=== PATIENT | female | born 1945 | race Caucasian/White ===

== ENCOUNTER → 2016-11-21 | Outpatient (CLI) | payer MEDICARE ==
[2016-11-21 08:51] LABS: Basophils # (A) 0.1 k/uL (0-0.2); Basophils % (A) 1 %; CH 30.6; CHCM 32.4; Eosinophils # (A) 0.1 k/uL (0-0.7); Eosinophils % (A) 2 %; HCT 41.5 % (34.0-46.0); HDW 2.39; HGB 13.1 gm/dL (11.4-16.0); Luc % (Auto) 2; Lymphocytes # (A) 1.5 k/uL (1.0-4.8); Lymphocytes % (A) 30 %; MCHC 31.5 g/dL (31.0-37.0); MCV 95.2 fL (80.0-100.0); Mean Platelet Volume 7.5; Monocytes # (A) 0.3 k/uL (0-1.0); Monocytes % (A) 7 %; Neutrophils # (A) 2.9 k/uL (1.3-7.7); Neutrophils % (A) 58 %; RBC 4.36 m/uL (3.80-5.40); RDW 14.1 % (11.5-15.5); WBC (Perox) 5.02
[2016-11-21 09:28] LABS: ALT 35 U/L (9-52); AST 29 U/L (14-36); Alkaline Phosphatase 61 U/L (38-126); Anion Gap 9 mmol/L; Blood Urea Nitrogen 14 mg/dL (7-17); Calcium 9.3 mg/dL (8.4-10.2); Carbon Dioxide 27 mmol/L (22-30); Chloride 107 mmol/L (98-107); Cholesterol 210 mg/dL (<200); Glucose 90 mg/dL (74-99); Non-African American GFR(MDRD) 55 (>60 ml/min/1.73 sqM); Potassium 4.5 mmol/L (3.5-5.1); Sodium 143 mmol/L (137-145); Total Bilirubin 0.4 mg/dL (0.2-1.3); Total Protein 7.3 g/dL (6.3-8.2)
[2016-11-21 09:29] LABS: HDL Cholesterol 63 mg/dL (40-60)
[2016-11-21 13:31] LABS: Hemoglobin A1C 5.7 % (4.2-6.1)
--- NOTE | 2016-11-22 09:06 | MM ---
Reason for exam: screening (asymptomatic). Last mammogram was performed 1 year ago. History: Patient is postmenopausal. Benign excisional biopsy of the left breast. 2 benign excisional biopsies of the right breast. Took estrogen for 3 years. Physical Findings: A clinical breast exam by your physician is recommended on an annual basis and results should be correlated with mammographic findings. MG 3D Screening Mammo W/Cad Bilateral CC and MLO view(s) were taken. Prior study comparison: November 17, 2015, bilateral MG 3d screening mammo w/cad. June 12, 2014, bilateral MG screening mammo w CAD. There are scattered fibroglandular densities. Finding: There are few typically benign vascular, round calcifications in both breasts, greater in the right breast. ASSESSMENT: Benign, BI-RAD 2 RECOMMENDATION: Routine screening mammogram of both breasts in 1 year.
== END | disposition home or self-care (01) ==
LOC: RADMAMWWP 08:19
PROVIDERS: ATTEND Internal Medicine Geriatric Medicine
DX: Z12.31 Encounter for screening mammogram for malignant neoplasm of breast (principal); E03.9 Hypothyroidism, unspecified; I25.10 Atherosclerotic heart disease of native coronary artery without angina pectoris; R79.89 Other specified abnormal findings of blood chemistry
CPT/HCPCS: 84439; 80061; 80053; 83036; 84443; 85025; 77063; 36415; G0202

== ENCOUNTER → 2017-12-10 | Outpatient (CLI) | payer MEDICARE ==
--- NOTE | 2017-12-10 19:11 | BD ---
EXAMINATION TYPE: Axial Bone Density DATE OF EXAM: 12/10/2017 COMPARISON: NONE CLINICAL HISTORY: 71-year-old female osteoporosis, postmenopausal screening Height: 63 Weight: 171.6 FRAX RISK QUESTIONS: Alcohol (3 or more units per day): no Family History (Parent hip fracture): no Glucocorticoids (More than 3mos): no (Ex: prednisone, prednisolone, methylprednisolone, dexamethasone, and hydrocortisone). History of Fracture in Adulthood: no Secondary Osteoporosis: 1. Type 1 Diabetes: no 2. Hyperthyroidism: no 3. Menopause before 45: no 4. Malnutrition: no 5. Chronic liver disease: no Rheumatoid Arthritis: no Current Tobacco Use: no RISK FACTORS HISTORY OF: Family History of Osteoporosis: no Active: yes Diet low in dairy products/other sources of calcium: no Postmenopausal woman: hysterectomy age 44 MEDICATIONS: Thyroid Medications: levothyroxine How Lon years Additional History: EXAM MEASUREMENTS: Bone mineral densitometry was performed using the [employer] System. Bone mineral density as measured about the Lumbar spine is: ----- L1-L4(G/cm2): 1.214 T Score Values are as follows: ----- L2: 0.4 ----- L3: 1.2 ----- L4: -0.4 ----- L1-L4: 0.3 Bone mineral density has: decreased -3.1 % since study of: 12.17.2014 Bone mineral density about the R hip (g/cm2): 0.905 Bone mineral density about the L hip (g/cm2): 0.868 T Score values are as follows: -----R Neck: -1.0 -----L Neck: -1.2 -----R Total: 0.0 -----L Total: 0.2 Bone mineral density has: decreased -2.1 % since study of: 12.17.2014 IMPRESSION: Osteopenia (T Score between -2.5 and -1). There is slightly increased risk of fracture and the patient may be considered for treatment. Re-Screen 2-5 years. NOTE: T-SCORE=SD OF THE YOUNG ADULT MEAN.
--- NOTE | 2017-12-11 10:23 | MM ---
Reason for exam: screening (asymptomatic). Last mammogram was performed 1 year and 1 month ago. History: Patient is postmenopausal. Benign excisional biopsy of the left breast. 2 benign excisional biopsies of the right breast. Took estrogen for 3 years. Physical Findings: A clinical breast exam by your physician is recommended on an annual basis and results should be correlated with mammographic findings. MG 3D Screening Mammo W/Cad Bilateral CC and MLO view(s) were taken. Prior study comparison: November 21, 2016, bilateral MG 3d screening mammo w/cad. November 17, 2015, bilateral MG 3d screening mammo w/cad. The breast tissue is heterogeneously dense. This may lower the sensitivity of mammography. No suspicious abnormality. No significant changes when compared with prior studies. ASSESSMENT: Negative, BI-RAD 1 RECOMMENDATION: Routine screening mammogram of both breasts in 1 year.
== END | disposition home or self-care (01) ==
LOC: RADMAMWWP 12:31
PROVIDERS: ATTEND Internal Medicine Geriatric Medicine
DX: Z12.31 Encounter for screening mammogram for malignant neoplasm of breast (principal); M85.80 Other specified disorders of bone density and structure, unspecified site
CPT/HCPCS: 77063; 77067; 77080

== ENCOUNTER 2018-05-15 09:27 | Observation (INO) | payer MEDICARE ==
[2018-05-15] MEDS ORDERED: NITROGLYCERIN SL TABS 0.4 MG TAB SUBLINGUAL STA (09:41)
[2018-05-15] MEDS ORDERED: ASPIRIN 81 MG PO STA (09:41)
--- NOTE | 2018-05-15 09:43 | ED ---
General Adult HPI - General Chief complaint: Chest Pain Stated complaint: Chest pain Time Seen by Provider: 05/15/18 09:37 Source: patient, RN notes reviewed Mode of arrival: ambulatory Limitations: no limitations - History of Present Illness Initial comments: Patient is a pleasant 72-year-old female presenting to the emergency Department with chest discomfort. Onset of symptoms was this morning. Discomfort is moderate. Discomfort feels like tightness in the upper chest near her throat. Patient has had some mild discomfort of her left shoulder for last couple of days. Patient states there is some minimal associated dyspnea that started this morning. No associated nausea or diaphoresis. Patient does have history of previous cardiac stents however symptoms at that time felt different. - Related Data Home Medications Medication Instructions Recorded Confirmed Levothyroxine Sodium [Synthroid] 75 mcg PO DAILY 05/05/15 05/15/18 Metoprolol Tartrate [Lopressor] 25 mg PO BID 05/05/15 05/15/18 Aspirin EC [Ecotrin] 325 mg PO HS 05/15/18 05/15/18 Famotidine [Pepcid] 20 mg PO BID 05/15/18 05/15/18 Rosuvastatin [Crestor] 10 mg PO DAILY 05/15/18 05/15/18 Ubidecarenone [Co Q-10] 100 mg PO DAILY 05/15/18 05/15/18 Allergies Allergy/AdvReac Type Severity Reaction Status Date / Time hydrocodone bitartrate Allergy Anaphylaxis Verified 05/15/18 09:45 [From Vicodin] Sulfa (Sulfonamide Allergy Abdominal Verified 05/15/18 09:45 Antibiotics) Pain Review of Systems ROS Statement: Those systems with pertinent positive or pertinent negative responses have been documented in the HPI. ROS Other: All systems not noted in ROS Statement are negative. Constitutional: Denies: fever Eyes: Denies: eye pain ENT: Denies: ear pain Respiratory: Reports: as per HPI. Denies: cough Cardiovascular: Reports: as per HPI, chest pain Endocrine: Denies: fatigue Gastrointestinal: Denies: abdominal pain Genitourinary: Denies: dysuria Musculoskeletal: Denies: back pain Skin: Denies: rash Neurological: Denies: weakness Past Medical History Past Medical History: Thyroid Disorder History of Any Multi-Drug Resistant Organisms: None Reported Past Surgical History: Heart Catheterization With Stent, Hysterectomy Additional Past Surgical History / Comment(s): 4 Stents Past Psychological History: No Psychological Hx Reported Smoking Status: Former smoker Past Alcohol Use History: None Reported Past Drug Use History: None Reported General Exam Limitations: no limitations General appearance: alert, in no apparent distress Head exam: Present: atraumatic Eye exam: Present: normal appearance Neck exam: Present: normal inspection Respiratory exam: Present: normal lung sounds bilaterally. Absent: chest wall tenderness Cardiovascular Exam: Present: regular rate, normal rhythm, normal heart sounds Expanded Peripheral pulses: 2+: Radial (R), Radial (L), Dorsalis Pedis (R), Dorsalis Pedis (L) GI/Abdominal exam: Present: soft. Absent: tenderness Extremities exam: Present: normal inspection. 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 UT 164. QRS 86. QT 402. QTC 408. Normal axis. Normal QRS. No acute ST change. Medical Decision Making - Medical Decision Making Patient reevaluated and improved following nitroglycerin. Patient updated on results and plan. Case was discussed in detail with Dr. Cornejo, who will admit covering for Dr. Hills. Cardiology will be placed on consult. - Lab Data Result diagrams: 05/15/18 09:58 05/15/18 09:58 Lab Results 05/15/18 05/15/18 05/15/18 Range/Units 09:58 09:58 09:58 WBC 5.0 (3.8-10.6) k/uL RBC 4.37 (3.80-5.40) m/uL Hgb 13.3 (11.4-16.0) gm/dL Hct 41.1 (34.0-46.0) % MCV 94.0 (80.0-100.0) fL MCH 30.5 (25.0-35.0) pg MCHC 32.4 (31.0-37.0) g/dL RDW 13.4 (11.5-15.5) % Plt Count 202 (150-450) k/uL Neutrophils % 59 % Lymphocytes % 27 % Monocytes % 7 % Eosinophils % 3 % Basophils % 1 % Neutrophils # 3.0 (1.3-7.7) k/uL Lymphocytes # 1.4 (1.0-4.8) k/uL Monocytes # 0.3 (0-1.0) k/uL Eosinophils # 0.2 (0-0.7) k/uL Basophils # 0.0 (0-0.2) k/uL PT 9.7 (9.0-12.0) sec INR 0.9 (<1.2) APTT 22.5 (22.0-30.0) sec D-Dimer 0.35 (<0.60) mg/L FEU Sodium 140 (137-145) mmol/L Potassium 4.0 (3.5-5.1) mmol/L Chloride 107 (98-107) mmol/L Carbon Dioxide 28 (22-30) mmol/L Anion Gap 5 mmol/L BUN 17 (7-17) mg/dL Creatinine 0.77 (0.52-1.04) mg/dL Est GFR (CKD-EPI)AfAm 89 (>60 ml/min/1.73 sqM) Est GFR (CKD-EPI)NonAf 77 (>60 ml/min/1.73 sqM) Glucose 111 H (74-99) mg/dL Calcium 9.2 (8.4-10.2) mg/dL Magnesium 2.0 (1.6-2.3) mg/dL Total Bilirubin 0.5 (0.2-1.3) mg/dL AST 27 (14-36) U/L ALT 31 (9-52) U/L Alkaline Phosphatase 56 (38-126) U/L Creatine Kinase 113 (30-135) U/L Troponin I (0.000-0.034) ng/mL Total Protein 7.1 (6.3-8.2) g/dL Albumin 4.0 (3.5-5.0) g/dL 05/15/18 Range/Units 09:58 WBC (3.8-10.6) k/uL RBC (3.80-5.40) m/uL Hgb (11.4-16.0) gm/dL Hct (34.0-46.0) % MCV (80.0-100.0) fL MCH (25.0-35.0) pg MCHC (31.0-37.0) g/dL RDW (11.5-15.5) % Plt Count (150-450) k/uL Neutrophils % % Lymphocytes % % Monocytes % % Eosinophils % % Basophils % % Neutrophils # (1.3-7.7) k/uL Lymphocytes # (1.0-4.8) k/uL Monocytes # (0-1.0) k/uL Eosinophils # (0-0.7) k/uL Basophils # (0-0.2) k/uL PT (9.0-12.0) sec INR (<1.2) APTT (22.0-30.0) sec D-Dimer (<0.60) mg/L FEU Sodium (137-145) mmol/L Potassium (3.5-5.1) mmol/L Chloride (98-107) mmol/L Carbon Dioxide (22-30) mmol/L Anion Gap mmol/L BUN (7-17) mg/dL Creatinine (0.52-1.04) mg/dL Est GFR (CKD-EPI)AfAm (>60 ml/min/1.73 sqM) Est GFR (CKD-EPI)NonAf (>60 ml/min/1.73 sqM) Glucose (74-99) mg/dL Calcium (8.4-10.2) mg/dL Magnesium (1.6-2.3) mg/dL Total Bilirubin (0.2-1.3) mg/dL AST (14-36) U/L ALT (9-52) U/L Alkaline Phosphatase (38-126) U/L Creatine Kinase (30-135) U/L Troponin I <0.012 (0.000-0.034) ng/mL Total Protein (6.3-8.2) g/dL Albumin (3.5-5.0) g/dL - Radiology Data Radiology results: image reviewed (Chest x-ray shows no acute process.) Disposition Clinical Impression: Chest pain Disposition: ADMITTED IP TO THIS HOSP Is patient prescribed a controlled substance at d/c from ED?: No Referrals: Yung Hills MD [Primary Care Provider] - 1-2 days Decision Time: 12:33
[2018-05-15 10:24] LABS: Basophils % (A) 1 %; Eosinophils # (A) 0.2 k/uL (0-0.7); Eosinophils % (A) 3 %; HCT 41.1 % (34.0-46.0); HGB 13.3 gm/dL (11.4-16.0); Lymphocytes # (A) 1.4 k/uL (1.0-4.8); Lymphocytes % (A) 27 %; MCH 30.5 pg (25.0-35.0); MCHC 32.4 g/dL (31.0-37.0); Mean Platelet Volume 6.6; Monocytes # (A) 0.3 k/uL (0-1.0); Monocytes % (A) 7 %; Neutrophils % (A) 59 %; Platelet Count 202 k/uL (150-450); RBC 4.37 m/uL (3.80-5.40); RDW 13.4 % (11.5-15.5)
[2018-05-15 10:25] LABS: Calcium 9.2 mg/dL (8.4-10.2); Total Bilirubin 0.5 mg/dL (0.2-1.3); Total Protein 7.1 g/dL (6.3-8.2)
--- NOTE | 2018-05-15 10:30 | XR ---
EXAMINATION TYPE: XR chest 2V DATE OF EXAM: 05/15/2018 COMPARISON: Prior chest dated 05/05/2015 HISTORY: Chest pain TECHNIQUE: Frontal and lateral views of the chest are obtained. FINDINGS: There is no focal air space opacity, pleural effusion, or pneumothorax seen. The cardiac silhouette size is within normal limits. The osseous structures are intact. There are cardiac leads . Biapical pleural thickening is stable. Surgical clips present in the upper abdomen. IMPRESSION: No acute cardiopulmonary process.
[2018-05-15 10:51] LABS: D-Dimer 0.35 mg/L FEU (<0.60); INR 0.9 (<1.2); Partial Thromboplastin Time 22.5 sec (22.0-30.0); Prothrombin Time 9.7 sec (9.0-12.0)
[2018-05-15] MEDS ORDERED: NITROGLYCERIN SL TABS 0.4 MG TAB SUBLINGUAL PRN (12:33)
[2018-05-15] MEDS ORDERED: NITROGLYCERIN OINT 1 INCH/GM PACKET TOPICAL STA (12:56)
--- NOTE | 2018-05-15 14:24 | P.HPIM ---
History of Present Illness H&P Date: 05/15/18 Chief Complaint: Chest pain This is a 72-year-old female patient of Dr. Hills with past medical history of coronary artery disease status post 4 stents, hypothyroidism, gastroesophageal reflux disease, hypertension, hyperlipidemia. Patient gives history that she normally contreras in [place] from February to the end of May. When they arrived in February she started walking in the park but she was developing heaviness in the anterior upper chest that was also radiating up into her neck and jaw and this would occur before she had walked very far and distance. She contacted a cardiology office in [place] and because she was a new patient could not be seen until next week. She contacted Dr. Arriaga and she was scheduled for an appointment today but because of her symptoms she decided to come into the emergency center versus going to the appointment. She states she has also had increased heartburn lately and also has left shoulder discomfort which she thinks may be related to packing to come to [place]. She has frequent night sweats. She does complain of lightheadedness that has been going on for 2 years and she is told both the Dr. Hills and Dr. Arriaga and they've told her to get up slowly. She denies having any nausea or vomiting. No diaphoresis. Patient came into [facility] emergency center for evaluation. She was afebrile, blood pressure 165/81, pulse ox 99% on room air, heart rate in the 60s. Chest x-ray showed no acute findings. EKG was a normal sinus rhythm without acute ST changes. Troponin normal, electrolytes within normal limits, CBC normal. D-dimer was 0.35. Liver function tests normal. Patient was placed on the observation unit and consult with cardiology requested. Patient states that she is due for a stress test in June and her last one was done 3 years ago. Patient states that she would prefer to have heart catheterization issues. Concerning the symptoms are similar to past when she needed stents. Review of Systems All systems: negative Constitutional: Reports fatigue, Reports night sweats, Denies anorexia, Denies chills, Denies fever, Denies lethargy, Denies malaise, Denies poor appetite, Denies weakness Eyes: denies blurred vision, denies pain Ears, nose, mouth and throat: Denies dental pain, Denies dysphagia, Denies headache, Denies nasal congestion, Denies nasal discharge, Denies sore throat Cardiovascular: Reports chest pain, Reports decreased exercise tolerance, Reports dyspnea on exertion, Reports lightheadedness, Denies edema, Denies leg edema, Denies palpitations, Denies shortness of breath, Denies syncope Respiratory: Denies cough, Denies cough with sputum, Denies dyspnea, Denies excessive sputum, Denies hemoptysis, Denies home oxygen, Denies sleep apnea, Denies wheezing Gastrointestinal: Reports dyspepsia, Denies abdominal pain, Denies diarrhea, Denies loss of appetite, Denies nausea, Denies vomiting Genitourinary: Denies dysuria, Denies hematuria, Denies urgency, Denies urinary frequency Musculoskeletal: Denies frequent falls, Denies gait dysfunction, Denies myalgias Integumentary: Denies pruritus, Denies rash, Denies wounds Neurological: Denies aphasia, Denies change in mentation, Denies change in speech, Denies gait dysfunction, Denies numbness, Denies seizures, Denies weakness Psychiatric: Denies anxiety, Denies depression Endocrine: Denies fatigue, Denies weight change Past Medical History Past Medical History: Coronary Artery Disease (CAD), GERD/Reflux, Thyroid Disorder History of Any Multi-Drug Resistant Organisms: None Reported Past Surgical History: Heart Catheterization With Stent, Hysterectomy Additional Past Surgical History / Comment(s): 4 Stents Past Psychological History: No Psychological Hx Reported Smoking Status: Former smoker Past Alcohol Use History: None Reported Additional Past Alcohol Use History / Comment(s): Patient was a smoker of a half a pack per day for 24 years and quit in 1982. She denies any marijuana or illicit drug use. She drinks alcohol occasionally. She lives at home with her , diane in [place]. Past Drug Use History: None Reported - Past Family History Father Additional Family Medical History / Comment(s): Father at age 93. He had history of angina. Mother Additional Family Medical History / Comment(s): Mother at age 73 with history of hypertension and cardiomyopathy. Patient presented to the hospital with probable heart attack and was given TPA and from a cerebral hemorrhage. Brother(s) Additional Family Medical History / Comment(s): Patient has 1 brother that at age 71 from coronary artery disease. Sister(s) Additional Family Medical History / Comment(s): Patient has one sister that had a major myocardial infarction age 41 underwent 4 vessel CABG and aneurysm repair of the heart and at age 56. Patient has one sister that is age 78 with asthma. Medications and Allergies Home Medications Medication Instructions Recorded Confirmed Type Levothyroxine Sodium [Synthroid] 75 mcg PO DAILY 05/05/15 05/15/18 History Metoprolol Tartrate [Lopressor] 25 mg PO BID 05/05/15 05/15/18 History Aspirin EC [Ecotrin] 325 mg PO HS 05/15/18 05/15/18 History Famotidine [Pepcid] 20 mg PO BID 05/15/18 05/15/18 History Rosuvastatin [Crestor] 10 mg PO DAILY 05/15/18 05/15/18 History Ubidecarenone [Co Q-10] 100 mg PO DAILY 05/15/18 05/15/18 History Allergies Allergy/AdvReac Type Severity Reaction Status Date / Time hydrocodone bitartrate Allergy Anaphylaxis Verified 05/15/18 09:45 [From Vicodin] Sulfa (Sulfonamide Allergy Abdominal Verified 05/15/18 09:45 Antibiotics) Pain Physical Exam Vitals: Vital Signs Temp Pulse Pulse Resp BP Pulse Ox 05/15/18 12:21 60 18 138/72 100 05/15/18 10:30 61 18 127/73 98 05/15/18 10:14 61 60 18 142/79 100 05/15/18 09:30 97.7 F 69 18 165/81 99 Intake and Output 05/14/18 05/15/18 05/15/18 22:59 06:59 14:59 Other: Weight 78.471 kg Gen: This is a 72-year-old female. She is sitting up in chair in the ER and appears to be comfortable and in no acute distress. HEENT: Head is atraumatic, normocephalic. Pupils equal, round. Sclerae is anicteric. NECK: Supple. No JVD. No lymphadenopathy. No thyromegaly. LUNGS: Clear to auscultation. No wheezes or rhonchi. No intercostal retractions. HEART: Regular rate and rhythm. No murmur. No chest wall tenderness. ABDOMEN: Soft. Bowel sounds are present. No masses. No tenderness. EXTREMITIES: No pedal edema. No calf tenderness. Dorsalis pedis +2 bilaterally. NEUROLOGICAL: Patient is awake, alert and oriented x3. Cranial nerves 2 through 12 are grossly intact. Results CBC & Chem 7: 05/15/18 09:58 05/15/18 09:58 Labs: Abnormal Lab Results - Last 24 Hours (Table) 05/15/18 Range/Units 09:58 Glucose 111 H (74-99) mg/dL Thrombosis Risk Factor Assmnt - DVT/VTE Prophylaxis DVT/VTE Prophylaxis: Pharmacologic Prophylaxis ordered Assessment and Plan Plan: 1. Chest pain/heaviness with dyspnea on exertion. Patient placed on the observation unit, serial troponins, lipid panel, cardiology consult. 2. History of coronary artery disease status post 4 stents. Continue aspirin 325 mg daily, Lopressor 25 mg twice daily, Crestor 10 mg at bedtime. 3. Hypothyroidism. Continue levothyroxine 75 g daily. Check TSH and free T4. 4. Gastroesophageal reflux disease and gastrointestinal prophylaxis. Continue Pepcid 20 mg twice daily. 5. Hyperlipidemia. Continue Crestor. 6. Hypertension. Continue Lopressor. 7. DVT prophylaxis. Heparin subcu. Patient placed on the observation unit. Discharge plan: Return home Impression and plan of care have been directed as dictated by the signing physician. Michelle Torres nurse practitioner acting as scribe for signing physician.
[2018-05-15] MEDS: NITROGLYCERIN OINT 1 INCH/GM PACKET TOPICAL SCH (18:53)
[2018-05-15] MEDS: HEPARIN SODIUM,PORCINE 5,000 UNIT/ML 1 ML VIAL SQ SCH (20:41)
[2018-05-15] MEDS: FAMOTIDINE 20 MG TAB PO SCH (20:44)
[2018-05-15] MEDS: METOPROLOL TARTRATE 25 MG TAB PO SCH (20:45)
[2018-05-15] MEDS ORDERED: NON-FORMULARY DRUG (Aspirin Ec 325 MG) PO SCH (21:00)
[2018-05-16] MEDS: NITROGLYCERIN OINT 1 INCH/GM PACKET TOPICAL SCH ×3 (01:03→14:01)
[2018-05-16 06:12] LABS: Cholesterol 195 mg/dL (<200); HDL Cholesterol 53 mg/dL (40-60); LDL Cholesterol,Calculated 109 mg/dL (0-99); Triglycerides 167 mg/dL (<150)
[2018-05-16] MEDS ORDERED: LEVOTHYROXINE 75 MCG TAB PO SCH (06:30)
[2018-05-16 07:53] VITALS: RESP 18
--- NOTE | 2018-05-16 08:08 | P.CRDCN ---
History of Present Illness Consult date: 05/16/18 History of present illness: This is a 72-year-old female with history of ischemic heart disease with a previous stent placement of the LAD and also right coronary artery, hypothyroidism, hypertension and hyperlipidemia. Since February patient has been experiencing heaviness in the upper chest radiating to the neck suggestive of exertional angina. Because of ongoing symptoms patient is admitted to the hospital. Her EKGs did not reveal any acute changes. Her cardiac enzymes are negative. However given her multiple risk factors and typical exertional angina, patient is advised to have a cardiac catheterization for definitive diagnosis. 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 History of Any Multi-Drug Resistant Organisms: None Reported Past Surgical History: Cholecystectomy, Heart Catheterization With Stent, Hysterectomy, Tonsillectomy Additional Past Surgical History / Comment(s): PCIs/total of 4 stents, colonoscopy, bilateral benign breast bx. Past Anesthesia/Blood Transfusion Reactions: No Reported Reaction Additional Past Anesthesia/Blood Transfusion Reaction / Comment(s): Pt has received blood with childbirth Date of Last Stent Placement:: 2012 Smoking Status: Former smoker - Past Family History Father Family Medical History: Chest Pain / Angina Additional Family Medical History / Comment(s): Father at age 93. He had history of angina. Mother Additional Family Medical History / Comment(s): Mother at age 73 with history of hypertension and cardiomyopathy. She presented to the hospital with probable heart attack and was given TPA and from a cerebral hemorrhage. Brother(s) Additional Family Medical History / Comment(s): Patient has 1 brother that at age 71 from coronary artery disease. Sister(s) Additional Family Medical History / Comment(s): Patient has one sister that had a major myocardial infarction age 41 underwent 4 vessel CABG and aneurysm repair of the heart and at age 56. Patient has one sister that is age 78 with asthma. Medications and Allergies Home Medications Medication Instructions Recorded Confirmed Type Levothyroxine Sodium [Synthroid] 75 mcg PO DAILY 05/05/15 05/15/18 History Metoprolol Tartrate [Lopressor] 25 mg PO BID 05/05/15 05/15/18 History Aspirin EC [Ecotrin] 325 mg PO HS 05/15/18 05/15/18 History Famotidine [Pepcid] 20 mg PO BID 05/15/18 05/15/18 History Rosuvastatin [Crestor] 10 mg PO DAILY 05/15/18 05/15/18 History Ubidecarenone [Co Q-10] 100 mg PO DAILY 05/15/18 05/15/18 History Allergies Allergy/AdvReac Type Severity Reaction Status Date / Time hydrocodone bitartrate Allergy Anaphylaxis Verified 05/15/18 09:45 [From Vicodin] Sulfa (Sulfonamide Allergy Abdominal Verified 05/15/18 09:45 Antibiotics) Pain Physical Exam Vitals: Vital Signs Temp Pulse Pulse Pulse Resp BP BP 05/16/18 07:52 97.9 F 64 18 05/16/18 03:56 60 62 16 05/16/18 03:46 97.7 F 62 16 92/50 05/16/18 00:00 60 68 16 05/15/18 23:40 98.2 F 68 16 96/54 05/15/18 20:00 60 65 18 125/67 05/15/18 18:21 97.6 F 64 18 122/70 05/15/18 18:08 97.7 F 79 18 108/54 05/15/18 18:05 79 18 108/54 05/15/18 14:56 61 18 150/93 05/15/18 12:21 60 18 138/72 05/15/18 10:30 61 18 127/73 05/15/18 10:14 61 60 18 142/79 05/15/18 09:30 97.7 F 69 18 165/81 BP Pulse Ox 05/16/18 07:52 164/70 98 05/16/18 03:56 05/16/18 03:46 97 05/16/18 00:00 05/15/18 23:40 98 05/15/18 20:00 05/15/18 18:21 97 05/15/18 18:08 98 05/15/18 18:05 98 05/15/18 14:56 99 05/15/18 12:21 100 05/15/18 10:30 98 05/15/18 10:14 100 03/20/19 09:30 99 Intake and Output 05/15/18 05/16/18 05/16/18 22:59 06:59 14:59 Other: Voiding Method Toilet Toilet # Voids 2 1 GENERAL EXAM: Patient is alert and oriented and doesn't appear to be in any acute distress HEENT: Normocephalic. Normal reaction of pupils, equal size, normal range of extraocular motion. No erythema or exudates in the throat. NECK: No masses, no nuchal rigidity. CHEST: No chest wall deformity. LUNGS: Equal air entry with no crackles or wheeze. HEART: S1 and S2 normal with no audible mumurs or gallops. Regular rhythm, femorals equal on both sides.. ABDOMEN: No hepatosplenomegaly, normal bowel sounds, no guarding or rigidity. SKIN: No rashes CENTRAL NERVOUS SYSTEM: No focal deficits. EXTREMITIES: No cyanosis, clubbing or edema. Results 05/15/18 09:58 05/15/18 09:58 Cardiac Enzymes 05/15/18 05/15/18 05/15/18 Range/Units 09:58 09:58 15:25 AST 27 (14-36) U/L Troponin I <0.012 <0.012 (0.000-0.034) ng/mL 05/15/18 Range/Units 21:54 AST (14-36) U/L Troponin I <0.012 (0.000-0.034) ng/mL Coagulation 05/15/18 Range/Units 09:58 PT 9.7 (9.0-12.0) sec APTT 22.5 (22.0-30.0) sec Lipids 05/15/18 Range/Units 09:58 Triglycerides 167 H (<150) mg/dL Cholesterol 195 (<200) mg/dL HDL Cholesterol 53 (40-60) mg/dL CBC 05/15/18 Range/Units 09:58 WBC 5.0 (3.8-10.6) k/uL RBC 4.37 (3.80-5.40) m/uL Hgb 13.3 (11.4-16.0) gm/dL Hct 41.1 (34.0-46.0) % Plt Count 202 (150-450) k/uL Comprehensive Metabolic Panel 05/15/18 Range/Units 09:58 Sodium 140 (137-145) mmol/L Potassium 4.0 (3.5-5.1) mmol/L Chloride 107 (98-107) mmol/L Carbon Dioxide 28 (22-30) mmol/L BUN 17 (7-17) mg/dL Creatinine 0.77 (0.52-1.04) mg/dL Glucose 111 H (74-99) mg/dL Calcium 9.2 (8.4-10.2) mg/dL AST 27 (14-36) U/L ALT 31 (9-52) U/L Alkaline Phosphatase 56 (38-126) U/L Total Protein 7.1 (6.3-8.2) g/dL Albumin 4.0 (3.5-5.0) g/dL Current Medications Generic Name Dose Route Start Last Admin Trade Name Freq PRN Reason Stop Dose Admin Aspirin 325 mg 05/16/18 09:00 Aspirin PO DAILY [facility] Atorvastatin Calcium 20 mg 05/16/18 09:00 Lipitor PO DAILY [facility] Famotidine 20 mg 05/15/18 21:00 05/15/18 20:44 Pepcid PO 20 mg BID [facility] Administration Heparin Sodium (Porcine) 5,000 unit 05/15/18 21:00 05/15/18 20:41 Heparin SQ Not Given Q12HR [facility] Levothyroxine Sodium 75 mcg 05/16/18 06:30 05/16/18 05:55 Synthroid PO 75 mcg DAILY@0630 [facility] Administration Metoprolol Tartrate 25 mg 05/15/18 21:00 05/15/18 20:45 Lopressor PO 25 mg BID [facility] Administration Nitroglycerin 1 inch 05/15/18 18:00 05/16/18 05:57 Nitro-Bid Oint TOPICAL Not Given Q6HR [facility] Nitroglycerin 0.4 mg 05/15/18 12:33 Nitrostat SUBLINGUAL Q5M PRN Chest Pain Sodium Chloride 10 ml 05/15/18 21:00 05/15/18 20:46 Saline Flush IV 10 ml BID JULIANA Administration Intake and Output 05/15/18 05/16/18 05/16/18 22:59 06:59 14:59 Other: Voiding Method Toilet Toilet # Voids 2 1 05/15/18 09:58 05/15/18 09:58 EKG Interpretations (text) Sinus rhythm Assessment and Plan (1) Exertional angina Current Visit: Yes Status: Acute Code(s): I20.8 - OTHER FORMS OF ANGINA PECTORIS SNOMED Code(s): 663558975 (2) CAD (coronary artery disease) Current Visit: Yes Status: Acute Code(s): I25.10 - ATHSCL HEART DISEASE OF [place] CORONARY ARTERY W/O ANG PCTRS SNOMED Code(s): 96109305 (3) Essential hypertension Current Visit: Yes Status: Acute Code(s): I10 - ESSENTIAL (PRIMARY) HYPERTENSION SNOMED Code(s): 12707013 (4) Hypercholesterolemia Current Visit: Yes Status: Acute Code(s): E78.00 - PURE HYPERCHOLESTEROLEMIA, UNSPECIFIED SNOMED Code(s): 97377293 Plan: We will proceed with cardiac catheterization for definite diagnosis. Further recommendations depend upon the findings on the cath
[2018-05-16] MEDS ORDERED: fentaNYL (PF) 50 MCG/ML 2 ML AMP IVP ONE (08:10)
[2018-05-16] MEDS ORDERED: ASPIRIN 325 MG TAB PO ONE (08:10)
[2018-05-16] MEDS ORDERED: MIDAZOLAM 2 MG/2 ML VIAL IVP ONE (08:10)
[2018-05-16] MEDS: LIDOCAINE 1% INJ 10MG/ML (20 ML MDV) SQ ONE ×2 (08:15→08:25)
[2018-05-16] MEDS ORDERED: IV FLUID CONTINUATION 1,000 ML IV ONE (08:18)
[2018-05-16] MEDS ORDERED: IOPAMIDOL-370 50ML BTL INJ ONE (08:45)
[2018-05-16] MEDS ORDERED: IOPAMIDOL-370 125ML BTL INJ ONE (08:45)
[2018-05-16] MEDS ORDERED: RX INFO: IV CONTRAST WAS GIVEN 1 EACH MISC MISCELLANE PRN (08:46)
[2018-05-16] MEDS ORDERED: ATORVASTATIN 20 MG TAB PO SCH (09:00)
[2018-05-16] MEDS ORDERED: SODIUM CHLORIDE 0.9% 1,000 ML IV SCH (09:00)
[2018-05-16] MEDS ORDERED: ASPIRIN 325 MG TAB PO SCH (09:00)
[2018-05-16] MEDS: METOPROLOL TARTRATE 25 MG TAB PO SCH (09:50)
[2018-05-16] MEDS: HEPARIN SODIUM,PORCINE 5,000 UNIT/ML 1 ML VIAL SQ SCH (09:50)
[2018-05-16] MEDS: FAMOTIDINE 20 MG TAB PO SCH (09:50)
[2018-05-16 11:00] VITALS: PULSE 74
--- NOTE | 2018-05-16 14:18 | P.DS ---
Providers Date of admission: 05/15/18 12:33 Expected date of discharge: 05/16/18 Attending physician: Julián Cornejo Consults: 05/15/18 12:33 Consult Physician Urgent Consulting Provider: Maurice Arriaga Consult Reason/Comments: cp Do you want consulting provider notified?: Yes Primary care physician: [facility] Course: This is a 72-year-old female patient of Dr. Hills with past medical history of coronary artery disease status post 4 stents, hypothyroidism, gastroesophageal reflux disease, hypertension, hyperlipidemia. Patient gives history that she normally contreras in [place] from February to the end of May. When they arrived in February she started walking in the park but she was developing heaviness in the anterior upper chest that was also radiating up into her neck and jaw and this would occur before she had walked very far and distance. She contacted a cardiology office in [place] and because she was a new patient could not be seen until next week. She contacted Dr. Arriaga and she was scheduled for an appointment today but because of her symptoms she decided to come into the emergency center versus going to the appointment. She states she has also had increased heartburn lately and also has left shoulder discomfort which she thinks may be related to packing to come to [place]. She has frequent night sweats. She does complain of lightheadedness that has been going on for 2 years and she is told both the Dr. Hills and Dr. Arriaga and they've told her to get up slowly. She denies having any nausea or vomiting. No diaphoresis. Patient came into [facility] emergency center for evaluation. She was afebrile, blood pressure 165/81, pulse ox 99% on room air, heart rate in the 60s. Chest x-ray showed no acute findings. EKG was a normal sinus rhythm without acute ST changes. Troponin normal, electrolytes within normal limits, CBC normal. D-dimer was 0.35. Liver function tests normal. Patient was placed on the observation unit and consult with cardiology requested. Patient states that she is due for a stress test in June and her last one was done 3 years ago. Patient states that she would prefer to have heart catheterization issues. Concerning the symptoms are similar to past when she needed stents. 05/16: Patient has undergone heart catheterization with Dr. Arriaga with no critical findings requiring intervention. Coronary artery disease ruled out as source of chest pain. Patient denies any chest pain at the time of evaluation. Patient has been afebrile, blood pressure 138/62, pulse ox 95% on room air, heart rate running in the 60s and 70s. Repeat troponins and negative. Triglycerides 167, cholesterol 195, LDL 109, HDL 53. TSH 2.9. Patient has been instructed to take Protonix twice daily for a week and recheck with Dr. Hills to see if symptoms are improved. Patient will be discharged home today in stable condition. Discharge diagnoses: 1. Chest pain/heaviness with dyspnea on exertion. Possibly related to GERD. 2. History of coronary artery disease status post 4 stents. 3. Hypothyroidism. 4. Gastroesophageal reflux disease and gastrointestinal prophylaxis. 5. Hyperlipidemia. 6. Hypertension. Discharge plan: Return home Impression and plan of care have been directed as dictated by the signing physician. Michelle Torres nurse practitioner acting as scribe for signing physician. Patient Condition at Discharge: Good Plan - Discharge Summary Discharge Rx Participant: No New Discharge Prescriptions: New Pantoprazole Sodium [Protonix] 40 mg PO BID #60 tablet. Continue Metoprolol Tartrate [Lopressor] 25 mg PO BID Levothyroxine Sodium [Synthroid] 75 mcg PO DAILY Ubidecarenone [Co Q-10] 100 mg PO DAILY Rosuvastatin [Crestor] 10 mg PO DAILY Aspirin EC [Ecotrin] 325 mg PO HS Discontinued Famotidine [Pepcid] 20 mg PO BID Discharge Medication List Levothyroxine Sodium [Synthroid] 75 mcg PO DAILY 05/05/15 [History] Metoprolol Tartrate [Lopressor] 25 mg PO BID 05/05/15 [History] Aspirin EC [Ecotrin] 325 mg PO HS 05/15/18 [History] Rosuvastatin [Crestor] 10 mg PO DAILY 05/15/18 [History] Ubidecarenone [Co Q-10] 100 mg PO DAILY 05/15/18 [History] Pantoprazole Sodium [Protonix] 40 mg PO BID #60 tablet. 05/16/18 [Rx] Follow up Appointment(s)/Referral(s): Yung Hills MD [Primary Care Provider] - 1 Week Activity/Diet/Wound Care/Special Instructions: Take Protonix twice daily until seen by Dr. Hills in one week. Discharge Disposition: HOME SELF-CARE
[2018-05-16 17:24] VITALS: BP 167/76; TEMP 97.8
--- NOTE | 2018-05-17 13:50 | P.CARDCATH ---
Date of Procedure: 05/17/18 Preoperative Diagnosis: Unstable angina Postoperative Diagnosis: Stable coronary artery disease Procedure(s) Performed: Left heart catheterization with left ventriculography Description of Procedure: HISTORY: This is a 72-year-old female was admitted to the hospital with chest pain suggestive of crescendo exertional angina. EKGs and cardiac enzymes are negative. Patient is advised to have a cardiac catheterization for definitive diagnosis CONSENT:I have discussed the risks, benefits and alternative therapies for the above-mentioned procedure and for both sedation/analgesia as well as necessary blood product administration, if indicated, as they pertain to this patient. The patient has indicated understanding and acceptance of the risks and procedures discussed. PROCEDURE: Attempts were made to do cardiac catheterization from the right radial approach. Though radial artery was entered, the guidewire could not be advanced. The procedure was abandoned and Was done from the right femoral approach. Patient was brought to the lab in a fasting state. Patient was given some IV sedation. The right groin is infiltrated with lidocaine and right femoral artery was entered using Seldinger technique. A 6-Persian catheter was left in place and selective coronary arteriography and left ventriculography was performed. Patient tolerated the procedure well. Femoral angiogram was performed and Angio-Seal was applied for hemostasis. No immediate complications were noted and patient was transferred to [facility] in a stable condition Conscious Sedation: Versed 1mg Fentanyl 50 g Duration 26minutes HEMODYNAMICS: The aortic pressure is 140/70. Left ventricle end-diastolic pressure is about 10-15. There was no gradient across the aortic valve SELECTIVE CORONARY ARTERIOGRAPHY: LEFT MAIN: This is short and patent without any upset to disease THE LEFT ANTERIOR DESCENDING CORONARY ARTERY:. This is a moderate caliber vessel with a diffuse plaque. Patent at the site of previous stent placement. No critical lesion focally noted THE LEFT CIRCUMFLEX AND IS CORONARY ARTERY:. This is a fair caliber vessel with patent stent with mild diffuse plaque. No Sigmund focal lesion noted in the circumflex or its OM branch THE RIGHT CORONARY ARTERY:. This is a moderate caliber vessel with patent stent in the midportion. Mild diffuse plaque without any significant focal lesion LEFT VENTRICULOGRAPHY:. This revealed normal-sized cardiac silhouette with good systolic function FINAL IMPRESSION:. Stable coronary artery disease with a diffuse plaque and patent stents in all the 3 vessels PLAN: Continues medical therapy and risk factor modification PROGNOSIS:. Fair
== END 2018-05-16 17:37 | disposition home or self-care (01) ==
LOC: EC 09:27 → 1SOBS 12:33
PROVIDERS: ADMIT Internal Medicine; ATTEND Internal Medicine
DX: R07.89 Other chest pain (principal); M25.512 Pain in left shoulder; R61 Generalized hyperhidrosis; R12 Heartburn; R42 Dizziness and giddiness; R06.09 Other forms of dyspnea; Z95.5 Presence of coronary angioplasty implant and graft; E03.9 Hypothyroidism, unspecified; I25.10 Atherosclerotic heart disease of native coronary artery without angina pectoris; E78.5 Hyperlipidemia, unspecified; I10 Essential (primary) hypertension; K21.9 Gastro-esophageal reflux disease without esophagitis; M54.31 Sciatica, right side; M54.9 Dorsalgia, unspecified; Z87.891 Personal history of nicotine dependence; Z79.890 Hormone replacement therapy; Z79.82 Long term (current) use of aspirin; Z79.899 Other long term (current) drug therapy; Z88.5 Allergy status to narcotic agent; Z90.49 Acquired absence of other specified parts of digestive tract; Z88.2 Allergy status to sulfonamides; Z82.5 Family history of asthma and other chronic lower respiratory diseases
CPT/HCPCS: 99285; 36415; 93005; 93458; 85379; 80061; 80053; 84443; 82550; 83735; 84484; 85025; 85610; 85730; 71046; G0378 ×2; C1760; C1769 ×4; C1894 ×2; J2250; J1644; J2001; J3010; Q9967 ×2

== ENCOUNTER → 2019-07-22 | Outpatient (CLI) | payer MEDICARE ==
--- NOTE | 2019-07-24 10:25 | MM ---
Reason for exam: screening (asymptomatic). Last mammogram was performed 1 year and 7 months ago. History: Patient is postmenopausal. Benign excisional biopsy of the left breast. 2 benign excisional biopsies of the right breast. Took estrogen for 10 years beginning at age 44. Physical Findings: A clinical breast exam by your physician is recommended on an annual basis and results should be correlated with mammographic findings. MG 3D Screening Mammo W/Cad Bilateral CC and MLO view(s) were taken. Prior study comparison: December 10, 2017, bilateral MG 3d screening mammo w/cad. November 21, 2016, bilateral MG 3d screening mammo w/cad. The breast tissue is heterogeneously dense. This may lower the sensitivity of mammography. There is no discrete abnormality. ASSESSMENT: Negative, BI-RAD 1 RECOMMENDATION: Routine screening mammogram of both breasts in 1 year.
== END | disposition home or self-care (01) ==
LOC: RADMAMWWP 13:40
PROVIDERS: ATTEND Internal Medicine Geriatric Medicine
DX: Z12.31 Encounter for screening mammogram for malignant neoplasm of breast (principal)
CPT/HCPCS: 77063; 77067

== ENCOUNTER → 2021-08-17 | Outpatient (CLI) | payer MEDICARE ==
--- NOTE | 2021-08-18 08:14 | BD ---
EXAMINATION TYPE: Axial Bone Density DATE OF EXAM: 08/17/2021 COMPARISON: NONE CLINICAL HISTORY: 75 years year old Female. ICD-10 CODE: M81.0 AGE RELATED OSTEOPOROSIS Height: 5 FT 2 IN Weight: 161 FRAX RISK QUESTIONS: Alcohol (3 or more units per day): NO Family History (Parent hip fracture): NO Glucocorticoids (More than 3mos): NO (Ex: prednisone, prednisolone, methylprednisolone, dexamethasone, and hydrocortisone). History of Fracture in Adulthood: NO Secondary Osteoporosis: 1. Type 1 Diabetes: NO 2. Hyperthyroidism: NO 3. Menopause before 45: YES 4. Malnutrition: NO 5. Chronic liver disease: NO Rheumatoid Arthritis: NO Current Tobacco Use: NO RISK FACTORS HISTORY OF: Surgery to Spine/Hip(right/left)/Wrist (right/left): NO Family History of Osteoporosis: NO Active: YES Diet low in dairy products/other sources of calcium: NO Postmenopausal woman: YES Take estrogen and/or progesterone medications: TOOK HRT FROM [age] NO LONGER Lost more than 2 inches in height since high school: NO Frequent falls: NO Poor Health: GOOD Hyperparathyroidism: NO Adrenal Insufficiency: NO MEDICATIONS: Thyroid Medications: YES Which medication: LEVOTHYROXINE How Long: OVER 25 YEARS Additional Medications: LEVOTHYROXINE , ISOSORBIDE, METOPROLOL, CRESTOR, ASPIRIN, NITROSTAT Additional History: OCCASIONAL LIGHT HEADED NESS EXAM MEASUREMENTS: Bone mineral densitometry was performed using the [employer]. Bone mineral density as measured about the Lumbar spine is: ----- L1-L4(G/cm2): 1.282 T Score Values are as follows: ----- L1: -0.5 ----- L2: 0.8 ----- L3: 2.0 ----- L4: 0.8 ----- L1-L4: 0.9 Bone mineral density has: INCREASED 8.4 % since study of: 2018 Bone mineral density about the R hip (g/cm2): 0.868 Bone mineral density about the L hip (g/cm2): 0.864 T Score values are as follows: -----R Neck: -1.2 -----L Neck: -1.2 -----R Total: -0.3 -----L Total: -0.3 Bone mineral density has: DECREASED -5.1 % since study of: 2018 FRAX%s: The graph provided illustrates a 11.0 % chance for a major osteoporotic fx and a 2.1 % chance for the hips probability for fx in 10 years time. IMPRESSION: Osteopenia (T Score between -2.5 and -1). There is slightly increased risk of fracture and the patient may be considered for treatment. Re-Screen 2-5 years. NOTE: T-SCORE=SD OF THE YOUNG ADULT MEAN.
--- NOTE | 2021-08-18 17:14 | MM ---
Reason for Exam: Screening (asymptomatic). Last mammogram was performed 2 year(s) and 1 month(s) ago. Patient History: Menarche at age 9. First Full-Term at age 19. Left ovary removed at age 44. Right ovary removed at age 44. Hysterectomy at age 44. Postmenopausal. Estrogen for 10 years from age 44 until age 54. Benign Excisional Biopsy on the right side. Benign Excisional Biopsy on the right side. Benign Excisional Biopsy on the left side. Risk Values: Mildred 5 year model risk: 2.6%. NCI Lifetime model risk: 5.3%. Prior Study Comparison: 11/21/2016 Bilateral Screening Mammogram, [facility]. 12/10/2017 Bilateral Screening Mammogram, [facility]. 07/22/2019 Bilateral Screening Mammogram, [facility]. Tissue Density: There are scattered fibroglandular densities. Findings: Analyzed By CAD. No suspicious groups of microcalcifications, spiculated or lobular masses, architectural distortion or other secondary signs of malignancy are mammographically apparent. Overall Assessment: Benign, BI-RAD 2 Management: Screening Mammogram of both breasts in 1 year. A negative mammogram report should not preclude additional follow up of suspicious palpable abnormalities. Patient should continue monthly self breast exam. A clinical breast exam by your physician is recommended on an annual basis and results should be correlated with mammographic findings. Electronically signed and approved by: Shadi Peguero D.O. Radiologis
== END | disposition home or self-care (01) ==
LOC: RADMAMWWP 16:02
PROVIDERS: ATTEND Internal Medicine Geriatric Medicine
DX: Z12.31 Encounter for screening mammogram for malignant neoplasm of breast (principal); M81.0 Age-related osteoporosis without current pathological fracture
CPT/HCPCS: 77063; 77067; 77080

== ENCOUNTER → 2022-05-26 | Outpatient (CLI) | payer MEDICARE ==
--- NOTE | 2022-05-26 13:04 | XR ---
EXAMINATION TYPE: XR chest 2V DATE OF EXAM: 05/26/2022 COMPARISON: 05/15/2018 TECHNIQUE: PA and lateral views submitted. HISTORY: Productive cough FINDINGS: The lungs are clear and there is no pneumothorax, pleural effusion, or focal pneumonia. Heart size normal and no overt failure. Osseous structures demonstrate hypertrophic and degenerative changes of the spine. Patchy attenuation right upper lobe. Calcification along the right humeral head can be ass ociated with calcific tendinosis. Nodular density again noted on the left cardiac border could be rel ated to nipple shadow. Hyperinflation suggests COPD. Surgical clips in the abdomen. IMPRESSION: 1. Vague patchy infiltrate right upper lobe following the resolution recommended. Correlate for early pneumonia. 2. Persistent nodular density along the lateral margin of the left heart border. This could potential ly be related to nipple shadow. Recommend short-term follow-up CT of the chest..
== END | disposition home or self-care (01) ==
LOC: RADXRMAIN 12:35
PROVIDERS: ATTEND Internal Medicine Geriatric Medicine
DX: R91.8 Other nonspecific abnormal finding of lung field (principal); R05.8 Other specified cough
CPT/HCPCS: 71046

== ENCOUNTER → 2022-06-05 | Outpatient (CLI) | payer MEDICARE ==
--- NOTE | 2022-06-05 19:43 | CT ---
EXAMINATION TYPE: CT chest w con DATE OF EXAM: 06/05/2022 COMPARISON: None HISTORY: pulmonary fibrosis CT DLP: 238.9 mGycm Automated exposure control for dose reduction was used. CONTRAST: CT scan of the chest is performed with IV Contrast, patient injected with 80 cc mL of Isovue 300. FINDINGS: LUNGS: Nodular infiltrates right upper lobe and lingula may reflect inflammatory/postinflammatory pricila nge. Correlate clinically. No evidence for mass or discrete nodule. Mild hyperinflation compatible wi th COPD. No significant emphysematous change or fibrosis. No pleural effusion. MEDIASTINUM: There are no greater than 1 cm hilar or mediastinal lymph nodes. No pericardial effusi on is seen. Thoracic aorta is of normal caliber. The heart is not enlarged. UPPER ABDOMEN: No significant abnormality appreciated. OTHER: No additional significant abnormality is seen. IMPRESSION: 1.Nodular infiltrates right upper lobe and lingula may reflect inflammatory/postinflammatory change. Correlate clinically.
== END | disposition home or self-care (01) ==
LOC: RADCTMAIN 16:00
PROVIDERS: ATTEND Internal Medicine Geriatric Medicine
DX: J84.10 Pulmonary fibrosis, unspecified (principal); R91.8 Other nonspecific abnormal finding of lung field
CPT/HCPCS: 82565; 84520; 71260; 36415; Q9967

== ENCOUNTER 2022-10-08 22:48 | Observation (INO) | payer MEDICARE ==
[2022-10-08 23:29] LABS: ALT 23 U/L (4-34); AST 30 U/L (14-36); African American GFR (CKD) 68 (>60 ml/min/1.73 sqM); Alkaline Phosphatase 65 U/L (38-126); Anion Gap 8 mmol/L; Basophils % (A) 0 %; Blood Urea Nitrogen 20 mg/dL (7-17); Calcium 9.1 mg/dL (8.4-10.2); Carbon Dioxide 29 mmol/L (22-30); Chloride 103 mmol/L (98-107); Eosinophils # (A) 0.1 k/uL (0-0.7); Eosinophils % (A) 2 %; Glucose 160 mg/dL (74-99); HCT 39.6 % (34.0-46.0); Lymphocytes # (A) 2.3 k/uL (1.0-4.8); Lymphocytes % (A) 38 %; MCH 30.1 pg (25.0-35.0); MCHC 32.7 g/dL (31.0-37.0); Magnesium 2.1 mg/dL (1.6-2.3); Mean Platelet Volume 8.2; Monocytes # (A) 0.4 k/uL (0-1.0); Monocytes % (A) 7 %; Neutrophils # (A) 2.9 k/uL (1.3-7.7); Neutrophils % (A) 49 %; Non-African American GFR(CKD) 59 (>60 ml/min/1.73 sqM); Platelet Count 171 k/uL (150-450); Potassium 3.8 mmol/L (3.5-5.1); RBC 4.31 m/uL (3.80-5.40); RDW 13.4 % (11.5-15.5); Sodium 140 mmol/L (137-145); Total Bilirubin 0.3 mg/dL (0.2-1.3); Total Protein 7.3 g/dL (6.3-8.2)
[2022-10-08 23:41] LABS: INR 0.9 (<1.2); Partial Thromboplastin Time 21.4 sec (22.0-30.0); Prothrombin Time 9.6 sec (9.0-12.0)
--- NOTE | 2022-10-09 00:36 | ED ---
Chest Pain HPI - General Chief Complaint: Chest Pain Stated Complaint: chest pain Time Seen by Provider: 10/08/22 23:34 Source: EMS Mode of arrival: EMS - History of Present Illness Initial Comments: 's patient is 76-year-old woman who noticed onset of substernal chest pain tonight little after 8 PM while she was watching television. She also had some associated dyspnea. Patient had radiation of the pain up towards her neck. When the pain did not resolve they phoned EMS who gave the patient nitroglycerin and the pain resolved after 2 of those. She is not having symptoms currently. MD Complaint: chest pain -: hour(s) Onset: during rest Pain Location: substernal Pain Radiation: neck Severity: moderate Quality: tightness Consistency: now resolved Improves With: nitroglycerin Worsens With: nothing Anginal Symptoms: dyspnea Treatments Prior to Arrival: nitroglycerin - Related Data Home Medications Medication Instructions Recorded Confirmed Levothyroxine Sodium [Synthroid] 75 mcg PO DAILY 05/05/15 05/15/18 Metoprolol Tartrate [Lopressor] 25 mg PO BID 05/05/15 05/15/18 Aspirin EC [Ecotrin] 325 mg PO HS 05/15/18 05/15/18 Rosuvastatin [Crestor] 10 mg PO DAILY 05/15/18 05/15/18 Ubidecarenone [Co Q-10] 100 mg PO DAILY 05/15/18 05/15/18 Previous Rx's Medication Instructions Recorded Pantoprazole Sodium [Protonix] 40 mg PO BID #60 tablet. 05/16/18 Allergies Allergy/AdvReac Type Severity Reaction Status Date / Time hydrocodone bitartrate Allergy Anaphylaxis Verified 10/08/22 23:02 [From Vicodin] Sulfa (Sulfonamide Allergy Abdominal Verified 10/08/22 23:02 Antibiotics) Pain Review of Systems ROS Statement: Those systems with pertinent positive or pertinent negative responses have been documented in the HPI. ROS Other: All systems not noted in ROS Statement are negative. Constitutional: Denies: fever, chills Respiratory: Reports: dyspnea. Denies: cough Cardiovascular: Reports: chest pain. 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 History of Any Multi-Drug Resistant Organisms: None Reported Past Surgical History: Cholecystectomy, Heart Catheterization With Stent, Hysterectomy, Tonsillectomy Additional Past Surgical History / Comment(s): PCIs/total of 4 stents, colonoscopy, bilateral benign breast bx. Past Anesthesia/Blood Transfusion Reactions: No Reported Reaction Additional Past Anesthesia/Blood Transfusion Reaction / Comment(s): Pt has received blood with childbirth Date of Last Stent Placement:: 2012 Past Psychological History: No Psychological Hx Reported Past Alcohol Use History: None Reported Past Drug Use History: None Reported - Past Family History Father Family Medical History: Chest Pain / Angina Additional Family Medical History / Comment(s): Father at age 93. He had history of angina. Mother Additional Family Medical History / Comment(s): Mother at age 73 with history of hypertension and cardiomyopathy. She presented to the hospital with probable heart attack and was given TPA and from a cerebral hemorrhage. Brother(s) Additional Family Medical History / Comment(s): Patient has 1 brother that at age 71 from coronary artery disease. Sister(s) Additional Family Medical History / Comment(s): Patient has one sister that had a major myocardial infarction age 41 underwent 4 vessel CABG and aneurysm repair of the heart and at age 56. Patient has one sister that is age 78 with asthma. General Exam General appearance: alert, in no apparent distress Head exam: Present: atraumatic, normocephalic Eye exam: Present: normal appearance. Absent: scleral icterus, conjunctival injection Neck exam: Present: normal inspection, full ROM Respiratory exam: Present: normal lung sounds bilaterally. Absent: respiratory distress, wheezes, rales, rhonchi, stridor Cardiovascular Exam: Present: regular rate, normal rhythm, normal heart sounds. Absent: systolic murmur, diastolic murmur, rubs, gallop GI/Abdominal exam: Present: soft. Absent: distended, tenderness, guarding, rebound, rigid, mass Extremities exam: Present: normal inspection, normal capillary refill. Absent: pedal edema, calf tenderness Back exam: Present: normal inspection. Absent: CVA tenderness (R), CVA tenderness (L) Neurological exam: Present: alert Skin exam: Present: warm, dry, intact, normal color. Absent: rash Course Vital Signs 10/08/22 10/09/22 22:59 01:02 Temperature 99 F Pulse Rate 77 75 Respiratory 18 18 Rate Blood Pressure 137/68 145/59 O2 Sat by Pulse 95 97 Oximetry Chest Pain MDM - MDM The patient had chest x-ray which I interpreted as being negative for acute infiltrate, pneumothorax, congestive heart failure Disposition Clinical Impression: Chest pain Disposition: ADMITTED IP TO THIS HOSP Condition: Good Instructions (If sedation given, give patient instructions): Chest Pain (ED) Is patient prescribed a controlled substance at d/c from ED?: No Referrals: Yung Hills MD [Primary Care Provider] - 1-2 days
[2022-10-09] MEDS ORDERED: NITROGLYCERIN SL TABS 0.4 MG TAB SUBLINGUAL PRN (01:08)
[2022-10-09] MEDS ORDERED: ASPIRIN 81 MG PO STA (01:08)
--- NOTE | 2022-10-09 01:10 | XR ---
EXAM: XR Chest, 2 Views CLINICAL HISTORY: ITS.REASON XR Reason: Chest Pain TECHNIQUE: Frontal and lateral views of the chest. COMPARISON: No relevant prior studies available. FINDINGS: Lungs: No consolidation or mass. Pleural space: No effusion. Heart: No cardiomegaly. Bones/joints: No acute findings. IMPRESSION: No acute cardiopulmonary process.
[2022-10-09] MEDS ORDERED: LEVOTHYROXINE 75 MCG TAB PO SCH (06:30)
[2022-10-09] MEDS ORDERED: PANTOPRAZOLE 40 MG TABLET PO SCH (07:30)
[2022-10-09] MEDS ORDERED: DOBUTamine DRIP for NUC MED 500 MG in DEXTROSE/WATER 1 250ML.BAG IV PRN (08:03)
[2022-10-09 08:19] VITALS: BP 166/64; PULSE 76; RESP 98; TEMP 97.8
[2022-10-09] MEDS ORDERED: ATORVASTATIN 20 MG TAB PO SCH (09:00)
[2022-10-09] MEDS ORDERED: METOPROLOL TARTRATE 25 MG TAB PO SCH (09:00)
--- NOTE | 2022-10-09 09:11 | CONS ---
CONSULTATION CHIEF COMPLAINT: Chest pain. HISTORY OF PRESENT ILLNESS: Connie is a 76-year-old lady with history of coronary artery disease, status post multiple prior angioplasties including angioplasty with stent placement of LAD, circumflex coronary artery, right coronary artery; hypertension; dyslipidemia; and hypothyroidism, comes to hospital complaining of chest discomfort. She describes it as a precordial chest pressure with some left arm pain and jaw discomfort, very similar to the symptoms that she had in 2019. She came to hospital and she thinks that the symptoms may have resolved following sublingual nitroglycerin. An EKG is essentially within normal limits. Three sets of cardiac enzymes are normal. At the time of my evaluation, the patient appears comfortable at rest and is free of symptoms and stable hemodynamically. The cardiac catheterization that she had in 2019 revealed patent stents within the LAD, circ, and right coronary artery. I reviewed her symptomatology, EKG findings, and prior cardiac catheterization. I talked to her at length about her treatment options including cardiac catheterization for definitive diagnosis versus a stress test, and if she has ischemia on stress test, consider invasive angiography. The patient opted for stress test at this time. PAST MEDICAL HISTORY: Significant for CAD status post multivessel angioplasty, hypertension, dyslipidemia, hypothyroidism. CURRENT MEDICATIONS: Include Synthroid, Zetia, Imdur, Lopressor, Crestor, CoQ10, Xanax, albuterol, multivitamin, and . ALLERGIES: She is allergic to Vicodin and sulfa. FAMILY HISTORY: Negative for premature coronary artery disease. SOCIAL HISTORY: Negative for current smoking, EtOH abuse, or drug abuse. REVIEW OF SYSTEMS: review of systems has been performed. Pertinents are as documented. PHYSICAL EXAMINATION: GENERAL: Comfortable at rest. VITAL SIGNS: Stable. NECK: There is no jugular venous distention. Carotid upstroke is normal. There is no bruit. CHEST: Good air entry bilaterally. HEART: First and second heart sounds. No gallop. No murmur. No rub. ABDOMEN: Soft, nontender. EXTREMITIES: Did not reveal any edema. Peripheral pulses are felt. EKG is normal. Three sets of cardiac enzymes are normal. Hemoglobin is 13, platelet count is 170. Potassium is 3.8, creatinine is 0.9. AST and ALT are within normal limits. ASSESSMENT AND PLAN: Unstable precordial chest pain in a patient with known coronary artery disease status post multivessel angioplasty. PLAN: I will obtain a dobutamine stress echo on her and if necessary ask Dr. Zarate who had seen her in the office after Dr. Arriaga's [facility] to perform a cardiac catheterization. MMODL / IJN: [id number] /
[2022-10-09] MEDS ORDERED: ALBUTEROL NEBULIZED 2.5 MG/3 ML INHALATION PRN (09:40)
[2022-10-09] MEDS ORDERED: ALPRAZolam 0.25 MG TAB PO PRN (09:40)
[2022-10-09] MEDS ORDERED: DOBUTamine DRIP for NUC MED 500 MG/250 ML BAG IV ONE (11:40)
--- NOTE | 2022-10-09 11:58 | P.HPIM ---
History of Present Illness H&P Date: 10/09/22 This is a pleasant 76-year-old female who presented to the emergency department having some substernal chest pressure while sitting that had been radiating up to her left shoulder and left neck. Patient states it lasted approximately 30- 45 minutes and was nervous about coming to the ER although called EMS and patient was brought here for further evaluation. Patient did receive 2 doses of nitro and reported the chest pressure had resolved. Patient follows with Dr. Hills in the outpatient setting with a past medical history of coronary artery disease with previous cardiac catheterizations and stenting in 2004 along with 2012 she received 2 additional stents including for total stents. Patient reports she used to follow with Dr. Jung cardiology outpatient and had a previous catheterization in 2019 with no intervention and was clear at the time. Patient to follow with Dr. Zarate after Dr. Knox's halfway. Patient also with a past medical history of GERD, hyperlipidemia, liver disease, thyroid disorder, occasional back and sciatica pain. EKG in the ER showed sinus rhythm with a heart rate is 70 bpm. Chest x-ray showed no acute cardiopulmonary process. Labs revealed a normal CBC with no white count, sodium 140, potassium 3.8, BUN 20, creatinine 0.94, glucose mildly elevated at 160, calcium 9.1, magnesium 2.1, troponins 3 are negative and liver functions were within normal limits. Patient was admitted under observation for chest pain for cardiology evaluation. Review Of Systems: Constitutional: No fever, no chills, no night sweats. No weight change. No weakness, fatigue or lethargy. No daytime sleepiness. EENT: No headache. No blurred vision or double vision, no loss of vision. No loss of Hearing, no ringing in the ears, no dizziness. No nasal drainage or congestion. No epistaxis. No sore throat. Lungs: No shortness of breath, cough, no sputum production. No wheezing. Cardiovascular: Reports of chest pressure in the midsternal area that has resolved, no lower extremity edema. No palpitations. No paroxysmal nocturnal dyspnea. No orthopnea. No lightheadedness or dizziness. No syncopal episodes. Abdominal: No abdominal pain. No nausea, vomiting. No diarrhea. No constipation. No bloody or tarry stools.. No loss of appetite. Genitourinary: No dysuria, increased frequency, urgency. No urinary retention. Musculoskeletal: No myalgias. No muscle weakness, no gait dysfunction, no frequent falls. No back pain. No neck pain. Integumentary: No wounds, no lesions. No rash or pruritus. No unusual bruising. No change in hair or nails. Neurologic: No aphasia. No facial droop. No change in mentation. No head injury. No headache. No paralysis. No paresthesia. Psychiatric: No depression. No anxiety. No mood swings. Endocrine: No abnormal blood sugars. No weight change. No excessive sweating or thirst. No cold intolerance. PHYSICAL EXAMINATION: GENERAL: The patient is alert and oriented x4, Well developed, well nourished. HEENT: Pupils are round and equally reacting to light. EOMI. no scleral icterus. No conjunctival pallor. Normocephalic, atraumatic. No pharyngeal erythema. No thyromegaly. CARDIOVASCULAR: S1 and S2 muffled PULMONARY: Breath sounds are clear to auscultation with no wheezing or rhonchi noted. ABDOMEN: soft. Nontender on exam. non-distended, normoactive bowel sounds. No palpable organomegaly. MUSCULOSKELETAL: No joint swelling or deformity. EXTREMITIES: No cyanosis, clubbing, or pedal edema. NEUROLOGICAL: Gross neurological examination did not reveal any focal deficits. SKIN: No rashes. Assessment: Chest pain, possible unstable angina, ACS ruled out History of coronary artery disease with previous stenting 4, most recent cardiac cath was 2019 History of GERD Hyperlipidemia Hypothyroidism History of eczema GI prophylaxis DVT prophylaxis Full code Plan: Patient will be continued on telemetry monitoring and cardiology has evaluated the patient recommend he undergo an cardiac stress test which is currently pending. Patient to follow with Dr. Zarate outpatient and will await stress test to determine if patient will need cardiac catheterization while inpatient. Patient home medications reviewed and resumed as appropriate Patient is nothing by mouth currently and awaiting stress test Troponins 3 have all been negative and labs was reviewed and within normal limits Will await stress test and further cardiology clearance for possible discharge later today The impression and plan of care has been dictated by nurse radha Rosenbaum ctitioner as directed. Dr. Marcial MD I have performed a history and examination and MDM of this patient, discussed the same with the dictator, and agree with the dictator's assessment and plan as written ,documented as a scribe. Based on total visit time, I have performed more than 50% of the visit. Any additional findings or plans will be noted. 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 History of Any Multi-Drug Resistant Organisms: None Reported Past Surgical History: Cholecystectomy, Heart Catheterization With Stent, Hysterectomy, Tonsillectomy Additional Past Surgical History / Comment(s): PCIs/total of 4 stents, colonoscopy, bilateral benign breast bx. Past Anesthesia/Blood Transfusion Reactions: No Reported Reaction Additional Past Anesthesia/Blood Transfusion Reaction / Comment(s): Pt has received blood with childbirth Date of Last Stent Placement:: 2012 Past Psychological History: No Psychological Hx Reported Past Alcohol Use History: None Reported Past Drug Use History: None Reported - Past Family History Father Family Medical History: Chest Pain / Angina Additional Family Medical History / Comment(s): Father at age 93. He had history of angina. Mother Additional Family Medical History / Comment(s): Mother at age 73 with history of hypertension and cardiomyopathy. She presented to the hospital with probable heart attack and was given TPA and from a cerebral hemorrhage. Brother(s) Additional Family Medical History / Comment(s): Patient has 1 brother that at age 71 from coronary artery disease. Sister(s) Additional Family Medical History / Comment(s): Patient has one sister that had a major myocardial infarction age 41 underwent 4 vessel CABG and aneurysm repair of the heart and at age 56. Patient has one sister that is age 78 with asthma. Medications and Allergies Home Medications Medication Instructions Recorded Confirmed Type Levothyroxine Sodium [Synthroid] 75 mcg PO DAILY 05/05/15 10/09/22 History Metoprolol Tartrate [Lopressor] 25 mg PO BID 05/05/15 10/09/22 History Rosuvastatin [Crestor] 10 mg PO HS 05/15/18 10/09/22 History Ubidecarenone [Co Q-10] 100 mg PO DAILY 05/15/18 10/09/22 History ALPRAZolam [Xanax] 0.25 mg PO BID PRN 10/09/22 10/09/22 History Albuterol Sulfate [Albuterol 2 puff PO RT-Q6H PRN 10/09/22 10/09/22 History Sulfate Hfa] Ezetimibe [Zetia] 10 mg PO HS 10/09/22 10/09/22 History Isosorbide Mononitrate ER [Imdur] 30 mg PO HS 10/09/22 10/09/22 History Multivit-Min/FA/Lycopen/Lutein 1 tab PO DAILY 10/09/22 10/09/22 History [Centrum Silver Tablet] [place]-3/Dha/Epa/Fish Oil [Fish Oil 1 cap PO DAILY 10/09/22 10/09/22 History 1,000 mg Softgel] Allergies Allergy/AdvReac Type Severity Reaction Status Date / Time hydrocodone bitartrate Allergy Anaphylaxis Verified 10/09/22 07:30 [From Vicodin] Sulfa (Sulfonamide Allergy Abdominal Verified 10/09/22 07:30 Antibiotics) Pain Physical Exam Vitals: Vital Signs Temp Pulse Pulse Resp BP BP Pulse Ox 10/09/22 07:00 97.8 F 61 76 98 H 145/62 166/64 98 10/09/22 06:00 72 18 139/61 96 10/09/22 05:00 71 143/62 96 10/09/22 03:00 72 18 140/62 97 10/09/22 02:00 74 18 152/64 96 10/09/22 01:30 71 10/09/22 01:22 75 18 145/59 97 10/09/22 01:02 75 18 145/59 97 10/08/22 22:59 99 F 77 18 137/68 95 Intake and Output 10/08/22 10/09/22 10/09/22 22:59 06:59 14:59 Other: Weight 68.946 kg Results CBC & Chem 7: 10/08/22 22:51 10/08/22 22:51 Labs: Abnormal Lab Results - Last 24 Hours (Table) 10/08/22 10/08/22 Range/Units 22:51 22:51 APTT 21.4 L (22.0-30.0) sec BUN 20 H (7-17) mg/dL Glucose 160 H (74-99) mg/dL Thrombosis Risk Factor Assmnt - DVT/VTE Prophylaxis DVT/VTE Prophylaxis: Mechanical Prophylaxis ordered, Low risk, early ambulation encouraged Assessment and Plan Time with Patient: Greater than 30
--- NOTE | 2022-10-09 12:06 | CA ---
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: [employer], Technologist: Ht (in): 64 Wt (lb): 152 Procedure CPT: Indication: CP ICD-9 Codes: Rhythm: Patient History: Chest pain Cardiac Medications: Medications in past 24 hours: Contrast: Total Dose (mL): Stress Results Protocol: Dobutamine Peak Dose (???g/kg/min): 20 Duration (min:sec): Atropine:(mg) Target HR: 122 Double Product: Resting HR: 74 Resting BP: 167 / 66 Peak HR: 126 Peak BP: 164 / 71 Max Predicted HR: 143 88 % Max Predicted HR Stress Summary: BP Response: Reason for Termination: Target HR Cardiac Symptoms: DIFFICULTY IN BREATHING ECG Analysis Resting EKG: Normal sinus rhythm normal axis normal intervals Stress EKG: Patient received dobutamine infusion for 6 minutes as per protocol achieving 85% of predicted maximal heart rate without chest pain or diagnostic ST segment depression Arrhythmia: Echo Analysis Base Echo Analysis: Normal left ventricular size wall motion systolic function Low Echo Anaylsis: Normal Peak Echo Analysis: Normal hyperdynamic response Recovery Echo: Normal MEASUREMENTS (Male/Female) Normal Values CONCLUSIONS Negative stress test by EKG criteria Negative dobutamine stress echo Dr. Facundo Barrera MD (Electronically Signed) Final Date: 09 October 2022 12:05
--- NOTE | 2022-10-09 12:08 | CA ---
Transthoracic Echo Report Name: Connie Moralez Age: 76 Gender: F : 1945 Exam Date: 10/09/2022 09:24 Exam Location: [facility] Ht (in): 64 Wt (lb): 152 Ordering Physician: Chloé Aguilar Attending/Referring Phys: Oscar Zarate DO ([email or web address]) Immigration Coordinator Alyssa Wu RDCS Procedure CPT: Indications: LV function, CP Cardiac Hx: Technical Quality: Fair Contrast 1: Total Dose (mL): Contrast 2: Total Dose (mL): MEASUREMENTS (Male / Female) Normal Values 2D ECHO LV Diastolic Diameter PLAX 4.2 cm 4.2 - 5.9 / 3.9 - 5.3 cm LV Systolic Diameter PLAX 2.2 cm IVS Diastolic Thickness 1.2 cm 0.6 - 1.0 / 0.6 - 0.9 cm LVPW Diastolic Thickness 1.2 cm 0.6 - 1.0 / 0.6 - 0.9 cm LV Relative Wall Thickness 0.6 RV Internal Dim ED PLAX 2.6 cm LVOT Diameter 1.9 cm LA Volume 47.3 cm??? 18 - 58 / 22 - 52 cm??? M-MODE Aortic Root Diameter MM 2.4 cm LA Systolic Diameter MM 4.6 cm LA Ao Ratio MM 1.9 AV Cusp Separation MM 1.6 cm DOPPLER AV Peak Velocity 297.1 cm/s AV Peak Gradient 35.3 mmHg AV Mean Velocity 209.8 cm/s AV Mean Gradient 18.9 mmHg AV Velocity Time Integral 73.5 cm LVOT Peak Velocity 106.0 cm/s LVOT Peak Gradient 4.5 mmHg LVOT Velocity Time Integral 27.8 cm LVOT Stroke Volume 78.6 cm??? LVOT Stroke Volume Index 45.1 ml/m??? LVOT Cardiac Index 3754.1 cm???/min???m??? AV Area Cont Eq vti 1.1 cm??? AV Area Cont Eq pk 1.0 cm??? MV Area PHT 3.2 cm??? Mitral E Point Velocity 94.8 cm/s Mitral A Point Velocity 84.5 cm/s Mitral E to A Ratio 1.1 MV Deceleration Time 234.2 ms MV E' Velocity 8.8 cm/s Mitral E to MV E' Ratio 10.7 TR Peak Velocity 263.4 cm/s TR Peak Gradient 27.7 mmHg Right Ventricular Systolic Press 31.8 mmHg FINDINGS Left Ventricle Mildly increased left ventricular wall thickness. Left ventricular cavity size normal. Normal left ventricular systolic function with no obvious regional wall motion abnormalities. Left ventricular ejection fraction is estimated at 55-60 %. Right Ventricle Normal right ventricular size and function. Right ventricular systolic pressure within normal limits. Right Atrium Normal right atrial size. Left Atrium Normal left atrial size. Mitral Valve Structurally normal mitral valve. Mitral valve thickened. Mild mitral annular calcification. Mild mitral regurgitation. Aortic Valve [id number] aortic stenosis with a peak gradient of 35 mmHg and a mean gradient of 19 mmHg. No aortic regurgitation. Tricuspid Valve Structurally normal tricuspid valve. Trace tricuspid regurgitation. Pulmonic Valve Structurally normal pulmonic valve. Trace pulmonic regurgitation. Pericardium No pericardial effusion. Aorta Normal size aortic root and proximal ascending aorta. CONCLUSIONS Normal LV function Mild to moderate aortic stenosis Mild mitral regurgitation Previewed by: Dr. Facundo Barrera MD (Electronically Signed) Final Date: 09 October 2022 12:07
[2022-10-09] MEDS ORDERED: ISOSORBIDE MONONITRATE ER 30 MG TAB.ER.24H PO SCH (21:00)
[2022-10-09] MEDS ORDERED: EZETIMIBE 10 MG TAB PO SCH (21:00)
[2022-10-10] MEDS ORDERED: NON FORMULARY DRUG (Ubidecarenone [Co Q-10] 100 MG Capsule) PO SCH (09:00)
[2022-10-10] MEDS ORDERED: ASPIRIN 81 MG PO SCH (09:00)
[2022-10-10] MEDS ORDERED: ASPIRIN 325 MG TAB PO SCH (09:00)
[2022-10-10] MEDS ORDERED: MULTIVITAMINS, THERA 1 EACH TAB PO SCH (09:00)
[2022-10-10] MEDS ORDERED: NON FORMULARY DRUG (Omega-3/Dha/Epa/Fish Oil [Fish Oil 1,000 Mg Softgel] 1 EACH Capsule) PO SCH (09:00)
--- NOTE | 2022-10-11 15:40 | P.DS ---
Providers Date of admission: 10/09/22 01:08 Expected date of discharge: 10/09/22 Attending physician: Herberth Thompson Consults: 10/09/22 01:08 Consult Physician Routine Consulting Provider: Kentrell Leon Consult Reason/Comments: chest pain Do you want consulting provider notified?: Yes Primary care physician: Yung Hills [facility] Course: Final diagnosis Chest pain, possible unstable angina, ACS ruled out, stress test was negative for ischemia History of coronary artery disease with previous stenting 4, most recent cardiac cath was 2019 History of GERD Hyperlipidemia Hypothyroidism History of eczema GI prophylaxis DVT prophylaxis Full code Discharge disposition Patient is being discharged in a stable condition with guarded prognosis to home. Patient will follow-up with Dr. Hills in the outpatient setting upon discharge. Patient is to continue with medications as mentioned below along with cardiology follow-up as scheduled. Total time taken is greater than 35 m inutes. Hospital course This is a 76-year-old female who was recently admitted with chest pain and admitted for further evaluation by cardiology. Cardiology evaluated the patient recommending stress test and patient underwent stress test which was negative for ischemia recommending outpatient follow-up. Patient reports her chest pain has improved and would like to go home. Please refer to cardiology consultation notes for further HPI. Currently no reports of chest pain, shortness of breath, or palpitations. Patient is afebrile. No reports of nausea or vomiting and patient is tolerating diet. Patient will be discharged home today. Physical exam: Gen: This is a 76-year-old female who is awake, alert and oriented 3, well- developed, well-nourished HEENT: Head is atraumatic, normocephalic. Pupils equal, round. Sclerae is anicteric. NECK: Supple. No JVD. No lymphadenopathy. No thyromegaly. LUNGS: Clear to auscultation. No wheezes or rhonchi. No intercostal retractions. HEART: Regular rate and rhythm. No murmur. ABDOMEN: Soft. Bowel sounds are present. No masses. No tenderness. EXTREMITIES: No pedal edema. No calf tenderness. NEUROLOGICAL: Patient is awake, alert and oriented x3. Cranial nerves 2 through 12 are grossly intact. Please refer to medication reconciliation sheet for a list of medications. The impression and plan of care has been dictated by Leidy Arthur, Nurse Practitioner as directed. Dr. Marcial MD I have performed a history and examination and MDM of this patient, discussed the same with the dictator, and agree with the dictator's assessment and plan as written ,documented as a scribe. Based on total visit time, I have performed more than 50% of the visit. Patient Condition at Discharge: Good Plan - Discharge Summary Discharge Rx Participant: No New Discharge Prescriptions: New Nitroglycerin Sl Tabs [Nitrostat] 0.4 mg SUBLINGUAL Q5M PRN #30 tab PRN Reason: Chest Pain Aspirin 81 mg PO DAILY #30 tab Continue Metoprolol Tartrate [Lopressor] 25 mg PO BID Levothyroxine Sodium [Synthroid] 75 mcg PO DAILY Ubidecarenone [Co Q-10] 100 mg PO DAILY Rosuvastatin [Crestor] 10 mg PO HS Albuterol Sulfate [Albuterol Sulfate Hfa] 2 puff PO RT-Q6H PRN PRN Reason: Shortness Of Breath ALPRAZolam [Xanax] 0.25 mg PO BID PRN PRN Reason: Anxiety Florence-3/Dha/Epa/Fish Oil [Fish Oil 1,000 mg Softgel] 1 cap PO DAILY Ezetimibe [Zetia] 10 mg PO HS Isosorbide Mononitrate ER [Imdur] 30 mg PO HS Multivit-Min/FA/Lycopen/Lutein [Centrum Silver Tablet] 1 tab PO DAILY Discharge Medication List Levothyroxine Sodium [Synthroid] 75 mcg PO DAILY 05/05/15 [History] Metoprolol Tartrate [Lopressor] 25 mg PO BID 05/05/15 [History] Rosuvastatin [Crestor] 10 mg PO HS 05/15/18 [History] Ubidecarenone [Co Q-10] 100 mg PO DAILY 05/15/18 [History] ALPRAZolam [Xanax] 0.25 mg PO BID PRN 10/09/22 [History] Albuterol Sulfate [Albuterol Sulfate Hfa] 2 puff PO RT-Q6H PRN 10/09/22 [History] Aspirin 81 mg PO DAILY #30 tab 10/09/22 [Rx] Ezetimibe [Zetia] 10 mg PO HS 10/09/22 [History] Isosorbide Mononitrate ER [Imdur] 30 mg PO HS 10/09/22 [History] Multivit-Min/FA/Lycopen/Lutein [Centrum Silver Tablet] 1 tab PO DAILY 10/09/22 [History] Nitroglycerin Sl Tabs [Nitrostat] 0.4 mg SUBLINGUAL Q5M PRN #30 tab 10/09/22 [Rx] Florence-3/Dha/Epa/Fish Oil [Fish Oil 1,000 mg Softgel] 1 cap PO DAILY 10/09/22 [History] Follow up Appointment(s)/Referral(s): Oscar Zarate DO [STAFF PHYSICIAN] - 10/16/22 3:30 pm Yung Hills MD [Primary Care Provider] - 1-2 days Patient Instructions/Handouts: Chest Pain (ED) Activity/Diet/Wound Care/Special Instructions: Activity Limited until follow-up Follow-up with primary care provider on discharge Follow-up with cardiology in one week Continue taking medications as prescribed Discharge Disposition: HOME SELF-CARE
== END 2022-10-09 15:10 | disposition home or self-care (01) ==
LOC: EC 22:48 → 6NMEDSUR 10-09 01:08
PROVIDERS: ADMIT Hospitalist; ATTEND Hospitalist
DX: R07.9 Chest pain, unspecified (principal); I25.10 Atherosclerotic heart disease of native coronary artery without angina pectoris; K21.9 Gastro-esophageal reflux disease without esophagitis; E78.5 Hyperlipidemia, unspecified; E03.9 Hypothyroidism, unspecified; I10 Essential (primary) hypertension; Z95.5 Presence of coronary angioplasty implant and graft; Z79.890 Hormone replacement therapy; Z79.899 Other long term (current) drug therapy; Z79.82 Long term (current) use of aspirin; Z88.2 Allergy status to sulfonamides; Z88.5 Allergy status to narcotic agent
CPT/HCPCS: 99285; 36415 ×2; 93005; 93306; 93351; 80053; 83735; 84484 ×2; 85025; 85610; 85730; 71046; G0378; J1250

== ENCOUNTER → 2023-06-06 | Outpatient (CLI) | payer MEDICARE ==
--- NOTE | 2023-06-07 15:16 | MM ---
Reason for Exam: Screening (asymptomatic). Last mammogram was performed 1 year(s) and 10 month(s) ago. Patient History: Menarche at age 9. First Full-Term at age 19. Left ovary removed at age 44. Right ovary removed at age 44. Hysterectomy at age 44. Postmenopausal. Estrogen for 10 years from age 44 until age 54. Benign Excisional Biopsy on the right side. Benign Excisional Biopsy on the right side. Benign Excisional Biopsy on the left side. Risk Values: Mildred 5 year model risk: 2.5%. NCI Lifetime model risk: 4.5%. Prior Study Comparison: 12/10/2017 Bilateral Screening Mammogram, [facility]. 07/22/2019 Bilateral Screening Mammogram, [facility]. 08/17/2021 Bilateral MG 3D screening mammo w/cad, [facility]. Tissue Density: The breasts are heterogeneously dense, which may obscure small masses. Findings: Analyzed By CAD. There is no suspicious group of microcalcifications or new suspicious mass in either breast. Overall Assessment: Benign, BI-RAD 2 Management: Screening Mammogram of both breasts in 1 year. . Patient should continue monthly self-breast exams. A clinical breast exam by your physician is recommended on an annual basis. This exam should not preclude additional follow-up of suspicious palpable abnormalities. Note on Mildred scores and lifetime risk: 1. A Mildred score greater than 3% is considered moderate risk. If this is the case, consider specialist referral to assess eligibility for a risk reducing agent. 2. If overall lifetime risk for the development of breast cancer is 20% or higher, the patient may qualify for future screening with alternating mammogram and breast MRI. Electronically signed and approved by: Petey Botello M.D. Radiologis
== END | disposition home or self-care (01) ==
LOC: RADMAMWWP 10:01
PROVIDERS: ATTEND Internal Medicine Geriatric Medicine
DX: Z12.31 Encounter for screening mammogram for malignant neoplasm of breast (principal); Z78.0 Asymptomatic menopausal state
CPT/HCPCS: 77063; 77067